=== PATIENT | male | born 1955 | race Caucasian/White ===

== ENCOUNTER 2018-11-14 14:03 | Emergency (ER) | payer MEDICAID ==
[~2018-11-14] VITALS: Ht 165.1 cm; Wt 55.6 kg
[2018-11-14 14:27] VITALS: Ht 165.1 cm; Wt 55.6 kg
[2018-11-14] MEDS ORDERED: ONDANSETRON 4 MG INJ IV STA (16:26)
[2018-11-14] MEDS ORDERED: SOD CHLORIDE 0.9% 1,000 ML IV STA (16:26)
[2018-11-14] MEDS ORDERED: THIAMINE 100 MG TAB PO ONE (16:30)
[2018-11-14] MEDS ORDERED: DEXTROSE 5%-0.45% NACL 500 ML BAG IV* ONE (16:30)
[2018-11-14] MEDS ORDERED: FOLIC ACID 1 MG TAB PO ONE (16:30)
[2018-11-14 19:02] VITALS: BP 135/82; PULSE 88; RESP 16
== END 2018-11-14 19:57 | disposition home or self-care (01) ==
LOC: E/R 14:03
DX: F10.920 Alcohol use, unspecified with intoxication, uncomplicated (principal); D69.6 Thrombocytopenia, unspecified; R74.8 Abnormal levels of other serum enzymes; Z59.0 Homelessness; Z87.891 Personal history of nicotine dependence
CPT/HCPCS: 80053; 83690; 85025; 96374; J2405; J7030; Z7502; Z7610